=== PATIENT | female | born 1945 ===

== ENCOUNTER 2021-07-20 13:38 | Outpatient (CLI) | payer MEDICARE | END 2021-07-20 13:39 | disposition home or self-care (01) | LOC: CSHMRI 13:38 | PROVIDERS: ATTEND Neurological Surgery | DX: S32.000A Wedge compression fracture of unspecified lumbar vertebra, initial encounter for closed fracture (principal); R26.89 Other abnormalities of gait and mobility; R29.6 Repeated falls; S32.011A Stable burst fracture of first lumbar vertebra, initial encounter for closed fracture; S32.050D Wedge compression fracture of fifth lumbar vertebra, subsequent encounter for fracture with routine healing; M47.816 Spondylosis without myelopathy or radiculopathy, lumbar region | CPT/HCPCS: 72141; 72148 ==